=== PATIENT | female | born 1985 | race Caucasian/White ===

== ENCOUNTER 2023-09-16 15:42 | Outpatient (CLI) | payer BC, SELFPAY ==
--- NOTE | 2023-09-16 16:00 | CRLHL7_ITS ---
For Patients: As a result of the Century Cures Act, medical imaging exams and procedure reports are released immediately into your electronic medical record. You may view this report before your referring provider. If you have questions, please contact your health care provider. INDICATION: Chronic sinusitis. TECHNIQUE: Noncontrast CT images acquired through the paranasal sinuses. COMPARISON: None. FINDINGS: No air-fluid levels to suggest acute sinusitis. Mild left and minimal right maxillary sinus mucosal thickening. The ethmoid infundibula are widely patent. Minimal mucosal thickening in the left frontal recess. The frontal sinuses are otherwise clear. The anterior and posterior ethmoid air cells are clear. The sphenoid sinuses and sphenoethmoidal recesses are clear. Slight rightward nasal septal deviation. No nasal cavity masses. The mastoid air cells are clear. IMPRESSION: 1. Minimal paranasal sinus mucosal disease. No air-fluid levels to suggest acute sinusitis. 2. Slight rightward nasal septal deviation. Please note that all CT scans at this facility use dose modulation, iterative reconstruction, and/or weight-based dosing when appropriate to reduce radiation dose to as low as reasonably achievable. Dictated by Emery Otero MD @ 09/16/2023 6:55:33 PM (Electronically Signed)
== END 2023-09-16 15:43 | disposition home or self-care (01) ==
LOC: CT 15:43
PROVIDERS: Visit Provider Otolaryngology
DX: J32.9 Chronic sinusitis, unspecified (principal); J34.2 Deviated nasal septum
CPT/HCPCS: 70486

== ENCOUNTER 2023-10-08 19:20 | Outpatient (CLI) | payer BC, SELFPAY ==
--- NOTE | 2023-10-14 13:42 | W.PM.SLEEP ---
Sleep Study Details Details Interpreting Provider: Mitra Date of Sleep Study: 10/08/23 Sleep Study Details: STUDY TYPE:? Home unattended ? BMI:? 27.1 ORDERING PROVIDER:? Mitra INDICATION:? Concerns about sleep apnea ? SLEEP SUMMARY:? Monitor time 251.9 minutes RESPIRATORY SUMMARY:? AHI 5.2, supine 4.3, left lateral 2.6, right lateral 50.4 Low oxygen 88 0.2% of study oxygen less than 90% No snoring was observed PERIODIC LIMB MOVEMENTS OF SLEEP:? Not recorded during home study CARDIAC:? Range 22-1 awake, mean 71.8 IMPRESSION:? Mild obstructive sleep apnea worse in the right lateral position Bradycardia was observed. RECOMMENDATION: For the bradycardia further evaluation by her primary physician may be indicated. For sleep apnea if symptomatic, we treatment could consist of either CPAP dental appliance positional therapy and/or airway expansion surgery.
== END 2023-10-08 19:21 | disposition home or self-care (01) ==
PROVIDERS: Visit Provider Otolaryngology
DX: G47.33 Obstructive sleep apnea (adult) (pediatric) (principal)
CPT/HCPCS: 95806

== ENCOUNTER 2023-10-16 10:47 | Day surgery (SDC) | payer BC, SELFPAY ==
[2023-10-16] VITALS (12 sets, daily range): BP systolic 117–139; BP diastolic 56–86; PULSE 64–83; RESP 14–17; TEMP 36.2–36.9; O2SAT 97–99; BMI 24.5
[2023-10-16] MEDS: LACTATED RINGERS 1000 ML 1,000 ML 100 ML IV (11:30)
[2023-10-16] MEDS: SODIUM CHLORIDE 0.9 % (FLUSH) 10 ML SYRINGE IVF (11:57)
[2023-10-16] MEDS: OXYMETAZOLINE 0.05% NASAL SPRAY 2 SPRAY NOSTRIL-B (13:00)
--- NOTE | 2023-10-16 13:16 | W.ANESCHARGE ---
Anesthesia Charges Start Date/Time Anesthesia Start Date: 10/16/23 Anesthesia Start Time: 13:34 Stop Date/Time Anesthesia Stop Date: 10/16/23 Anesthesia Stop Time: 14:09
[2023-10-16] MEDS: BUPIVACAINE 0.5%/EPINEPHRINE 0.9 MG (30.9 ML) INJECTION (13:45)
--- NOTE | 2023-10-16 13:45 | W.ANESCHARGE ---
Anesthesia Charges Start Date/Time Anesthesia Start Date: 10/16/23 Anesthesia Start Time: 13:34 Stop Date/Time Anesthesia Stop Date: 10/16/23 Anesthesia Stop Time: 14:09
[2023-10-16] MEDS: MUPIROCIN 1 GM PACKET 1 APPLIC TOPICAL (13:48)
[2023-10-16] MEDS: COCAINE HCL 4 % 4 ML SOLUTION NOSTRIL-B (13:48)
[2023-10-16] MEDS: AYR SALINE NASAL GEL 1 APPLIC NOSTRIL-B (13:49)
--- NOTE | 2023-10-16 14:44 | W.PM.ENTPROC ---
Procedure Note Date of procedure: 10/16/23 Procedure: Preop diagnosis nasal obstruction nasal headache septal deviation middle turbinate hypertrophy inferior turbinate hypertrophy both bilateral Postoperative diagnosis same Procedure nasal septoplasty, submucous partial resection inferior turbinates and reduction of middle turbinates Under general endotracheal anesthesia patient was prepped draped usual fashion nose injected decongested. The septal deflection was superior on both sides. Mucosa anterior to this was incised with a 15 blade and elevated on either side of the deflection. The deflected portions of septal bone and cartilage was resected straightened and returned to intraseptal space. Both middle turbinates were crushed with the [place] forceps. S A stab incision was made in the anterior of the right inferior turbinate a tunnel created with a [place]a dissector. A conservative anterior submucous resection was performed. The Coblation Wand was then used to cauterize intramurally along the inferior 10% very conservatively. This was repeated on the left side in identical fashion. Merocel packs coated in Bactroban were placed in the middle meatus on each side. The patient procedure well was taken recovery in satisfactory condition. Blood loss was less than 25 mL. Surgeon: Ramana Manriquez MD
[2023-10-16] MEDS: ACETAMINOPHEN 325 MG TABLET PO (14:55)
[2023-10-16] MEDS: IBUPROFEN 200 MG TABLET PO (14:56)
== END 2023-10-16 15:38 | disposition home or self-care (01) ==
LOC: OR 10:47
PROVIDERS: Visit Provider Otolaryngology
PROC: (CPT 30520; principal; 2023-10-16 12:15)
DX: J34.2 Deviated nasal septum (principal); J34.3 Hypertrophy of nasal turbinates; R51.9 Headache, unspecified
CPT/HCPCS: 30520; 30140; 30999; 160; A9270; J0330; J1100; J2405; J2704; J3010; J7120